=== PATIENT | male | born 1975 | race Two or more races ===

== ENCOUNTER → 2017-07-09 | Emergency (ER) | payer OTHER ==
[~2017-07-09] VITALS: Ht 162.6 cm; Wt 67.1 kg
== END | disposition home or self-care (01) ==
LOC: ER 17:48
DX: K52.9 Noninfective gastroenteritis and colitis, unspecified (principal)

== ENCOUNTER → 2020-05-17 | Outpatient (CLI) | payer OTHER | END | disposition home or self-care (01) | LOC: OFIC 805 14:48 | PROVIDERS: ATTEND Otolaryngology | DX: H60.8X3 Other otitis externa, bilateral (principal); H61.23 Impacted cerumen, bilateral; K52.89 Other specified noninfective gastroenteritis and colitis ==

== ENCOUNTER → 2021-01-06 | Outpatient (CLI) | payer OTHER | END | disposition home or self-care (01) | LOC: LAB 13:30 | PROVIDERS: ATTEND Emergency Medicine Pediatric Emergency Medicine | DX: Z03.818 Encounter for observation for suspected exposure to other biological agents ruled out (principal) ==

== ENCOUNTER 2021-03-10 14:00 | Outpatient (CLI) | payer OTHER | END 2021-03-10 14:30 | disposition home or self-care (01) | LOC: PPH VACUNA 14:00 | PROVIDERS: ATTEND Emergency Medicine Pediatric Emergency Medicine | DX: Z23 Encounter for immunization (principal) ==

== ENCOUNTER 2022-02-13 08:00 | Outpatient (CLI) | payer OTHER | END 2022-02-13 08:05 | disposition home or self-care (01) | LOC: PPH VACUNA 08:00 | PROVIDERS: ATTEND Emergency Medicine Pediatric Emergency Medicine | DX: Z23 Encounter for immunization (principal) ==

== ENCOUNTER 2023-02-25 10:00 | Outpatient (CLI) | payer OTHER | END 2023-02-25 10:10 | disposition home or self-care (01) | LOC: PPH VACUNA 10:00 | PROVIDERS: ATTEND Emergency Medicine Pediatric Emergency Medicine | DX: Z23 Encounter for immunization (principal) ==

== ENCOUNTER 2025-05-02 00:17 | Emergency (ER) | payer OTHER ==
[~2025-05-02] VITALS: Ht 162.6 cm; Wt 67.1 kg
[2025-05-02] MEDS ORDERED: FAMOtidine 10 MG/ML (4ML VIAL) IV STA (01:09)
[2025-05-02] MEDS ORDERED: DEXAMETHASONE SODIUM PHOSPHATE 4 MG/ML VIAL IV STA (01:09)
[2025-05-02] MEDS ORDERED: KETOROLAC TROMETHAMINE 60 MG VIAL IM STA (01:13)
[2025-05-02 03:03] LABS: BASO % 0.7 % (0.1-1.2); EOS # 0.07 (0.04-0.54); EOS % 0.9 % (0.7-7.0); LYMPH # 1.31 (1.18-3.74); LYMPH % 17.4 % (19.3-53.1); MEAN PLATELET VOLUME 10.50 fl (9.4-12.4); MONO # 0.63 (0.24-0.82); MONO % 8.4 % (4.7-12.5); NEUT # 5.44 (1.56-6.13); NEUT % 72.5 % (34.0-71.1); RED CELL DISTRIBUTION WIDTH 11.5 % (11.6-14.4)
[2025-05-02 03:48] LABS: BUN CREA RATIO 21.0 (7.0-25.0); CREATININE SERUM 0.81 mg/dL (0.70-1.30); GFR 100.07; GLUCOSE FASTING 119.0 mg/dL (65-100); OSMOLALITY SERUM 286.0 MOSM/KG (275-295)
[2025-05-02 04:28] LABS: URINE APPEARANCE Clear; URINE BILIRRUBIN Negative (NEGATIVE); URINE BLOOD Negative; URINE COLOR Yellow; URINE GLUCOSE Negative (NEGATIVE); URINE KETONE Negative (NEGATIVE); URINE LEUKOCYTE Negative; URINE NITRATE Negative; URINE PROTEIN Negative (NEGATIVE); URINE UROBILINOGEN 0.2 E.U./dl
[2025-05-02 04:32] LABS: URINE BACTERIA 8.3 uL (0.0-1933); URINE WBC 2.8 uL (0.0-23.2)
[2025-05-02 04:40] LABS: TYPE CELLS SQUAMOUS; URINE CAST 0.29 uL (0.0-1.40); URINE EPITHELIAL CELLS 0.7 uL (0.0-38.8); URINE RBC 0.8 uL (0.0-20.8)
[2025-05-02 04:57] LABS: COVID-19 AG NEGATIVE (NEGATIVE)
== END 2025-05-02 06:49 | disposition home or self-care (01) ==
LOC: ER 00:17
PROVIDERS: General Practice
DX: R55 Syncope and collapse (principal); R10.9 Unspecified abdominal pain; Z20.822 Contact with and (suspected) exposure to COVID-19; K29.00 Acute gastritis without bleeding